=== PATIENT | male | born 1990 | race Caucasian/White ===

== ENCOUNTER 2016-11-29 01:27 | Emergency (ER) | payer SELFPAY ==
[~2016-11-29] VITALS: Ht 180.3 cm; Wt 118.2 kg
[2016-11-29 01:37] VITALS: BP 112/52; PULSE 109; RESP 18; TEMP 98.7; O2SAT 95
--- NOTE | 2016-11-29 02:08 | PD ---
HPI Chief Complaint: Psychiatric Symptoms Time Seen by Provider: 01:58 Travel History International Travel<30 days: No Contact w/Intl Traveler<30days: No Traveled to known affect area: No History of Present Illness HPI 26-year-old white male presents to emergency department on a voluntary basis requesting psychological evaluation. The patient states that is been feeling increasingly depressed. He has been from his baby's mother for some time now. She has found a new boyfriend had moved up to [place] with his daughter. 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 He drinks alcohol approximately 3 times a week and smokes marijuana. He is been having increasing intrusive thoughts of self-harm. He has no active plan at this time. He denies any toxic ingestions. No homicidal ideation. The patient states that he lives in [place]. [facility] Past Medical History Medical History: Denies Significant Hx Diabetes: No Diminished Hearing: No Tetanus Vaccination: > 5 Years Influenza Vaccination: No Past Surgical History Narrative Surgical Hand surgery Other Surgery: Yes (HAND SURGERY lt ) Social History Alcohol Use: Yes (8 beers tonight last at 0000) Tobacco Use: Yes (2 ppd) Substance Use: Yes Allergies-Medications (Allergen,Severity, Reaction): Coded Allergies: No Known Allergies (Verified , 12/29/15) Reported Meds & Prescriptions Reported Meds & Active Scripts Active No Active Prescriptions or Reported Medications Review of Systems Except as stated in HPI: all other systems reviewed are Neg Physical Exam Narrative GENERAL: Well-nourished, morbidly obese patient. SKIN: Warm and dry. HEAD: Normocephalic and atraumatic. EYES: No scleral icterus. No injection or drainage. ENT: No nasal drainage noted. Mucous membranes pink. Airway patent. NECK: Supple, trachea midline. Moves head freely without obvious discomfort. CARDIOVASCULAR: Regular rate and rhythm without murmurs, gallops, or rubs. RESPIRATORY: Breath sounds equal bilaterally. No accessory muscle use. Few expiratory wheezes GASTROINTESTINAL: Abdomen soft, non-tender, nondistended. EXTREMITIES: No cyanosis or edema. BACK: Nontender without obvious deformity. No CVA tenderness. NEURO: Patient is alert and oriented. no sensorimotor deficits. Nonfocal. Normal speech. PSYCH: No delusions. No auditory or visual hallucinations. Data Data Last Documented VS Vital Signs Date Time Temp Pulse Resp B/P (MAP) Pulse Ox O2 Delivery O2 Flow Rate FiO2 11/29/16 01:37 98.7 109 18 112/52 (72) 95 Orders Orders Complete Blood Count With Diff (11/29/16 01:58) Comprehensive Metabolic Panel (11/29/16 01:58) Psych Screen (11/29/16 01:58) Drug Screen, Random Urine (11/29/16 01:58) Alcohol (Ethanol) (11/29/16 01:58) Labs Laboratory Tests Test 11/29/16 02:08 11/29/16 02:14 White Blood Count 12.7 TH/MM3 Red Blood Count 4.29 MIL/MM3 Hemoglobin 13.4 GM/DL Hematocrit 40.1 % Mean Corpuscular Volume 93.4 FL Mean Corpuscular Hemoglobin 31.3 PG Mean Corpuscular Hemoglobin Concent 33.6 % Red Cell Distribution Width 13.1 % Platelet Count 235 TH/MM3 Mean Platelet Volume 8.6 FL Neutrophils (%) (Auto) 56.5 % Lymphocytes (%) (Auto) 34.6 % Monocytes (%) (Auto) 6.8 % Eosinophils (%) (Auto) 1.3 % Basophils (%) (Auto) 0.8 % Neutrophils # (Auto) 7.2 TH/MM3 Lymphocytes # (Auto) 4.4 TH/MM3 Monocytes # (Auto) 0.9 TH/MM3 Eosinophils # (Auto) 0.2 TH/MM3 Basophils # (Auto) 0.1 TH/MM3 CBC Comment DIFF FINAL Differential Comment Blood Urea Nitrogen 15 MG/DL Creatinine 0.91 MG/DL Random Glucose 120 MG/DL Total Protein 7.6 GM/DL Albumin 4.1 GM/DL Calcium Level 8.2 MG/DL Alkaline Phosphatase 71 U/L Aspartate Amino Transf (AST/SGOT) 27 U/L Alanine Aminotransferase (ALT/SGPT) 99 U/L Total Bilirubin 0.2 MG/DL Sodium Level 141 MEQ/L Potassium Level 4.0 MEQ/L Chloride Level 110 MEQ/L Carbon Dioxide Level 21.1 MEQ/L Anion Gap 10 MEQ/L Estimat Glomerular Filtration Rate 99 ML/MIN Ethyl Alcohol Level 222 MG/DL Urine Opiates Screen NEG Urine Barbiturates Screen NEG Urine Amphetamines Screen NEG Urine Benzodiazepines Screen NEG Urine Cocaine Screen NEG Urine Cannabinoids Screen POS MDM Medical Decision Making Medical Screen Exam Complete: Yes Emergency Medical Condition: Yes Medical Record Reviewed: Yes Interpretation(s) Laboratory Tests Test 11/29/16 02:08 11/29/16 02:14 White Blood Count 12.7 TH/MM3 Red Blood Count 4.29 MIL/MM3 Hemoglobin 13.4 GM/DL Hematocrit 40.1 % Mean Corpuscular Volume 93.4 FL Mean Corpuscular Hemoglobin 31.3 PG Mean Corpuscular Hemoglobin Concent 33.6 % Red Cell Distribution Width 13.1 % Platelet Count 235 TH/MM3 Mean Platelet Volume 8.6 FL Neutrophils (%) (Auto) 56.5 % Lymphocytes (%) (Auto) 34.6 % Monocytes (%) (Auto) 6.8 % Eosinophils (%) (Auto) 1.3 % Basophils (%) (Auto) 0.8 % Neutrophils # (Auto) 7.2 TH/MM3 Lymphocytes # (Auto) 4.4 TH/MM3 Monocytes # (Auto) 0.9 TH/MM3 Eosinophils # (Auto) 0.2 TH/MM3 Basophils # (Auto) 0.1 TH/MM3 CBC Comment DIFF FINAL Differential Comment Blood Urea Nitrogen 15 MG/DL Creatinine 0.91 MG/DL Random Glucose 120 MG/DL Total Protein 7.6 GM/DL Albumin 4.1 GM/DL Calcium Level 8.2 MG/DL Alkaline Phosphatase 71 U/L Aspartate Amino Transf (AST/SGOT) 27 U/L Alanine Aminotransferase (ALT/SGPT) 99 U/L Total Bilirubin 0.2 MG/DL Sodium Level 141 MEQ/L Potassium Level 4.0 MEQ/L Chloride Level 110 MEQ/L Carbon Dioxide Level 21.1 MEQ/L Anion Gap 10 MEQ/L Estimat Glomerular Filtration Rate 99 ML/MIN Ethyl Alcohol Level 222 MG/DL Urine Opiates Screen NEG Urine Barbiturates Screen NEG Urine Amphetamines Screen NEG Urine Benzodiazepines Screen NEG Urine Cocaine Screen NEG Urine Cannabinoids Screen POS Differential Diagnosis MDM: High Differential diagnoses: Schizophrenia, schizoaffective disorder, bipolar, anxiety, depression, adjustment reaction, mood disorder NOS, ODD, depressive disorder NOS, dementia, dementia with agitation, psychosis NOS, substance induced mood disorder, infection,electrolyte abnormality, malingering. Narrative Course Mental health screening discussed with the patient. Psychiatric screen ordered. The patient is been medically cleared. This is medical clearance for psychiatric admission Diagnosis Primary Impression: Medical clearance for psychiatric admission Scripts No Active Prescriptions or Reported Meds Condition: Jasen Dubose Nov 29, 2016 02:08
[2016-11-29 02:20] LABS: AUTOMATED NEUTROPHIL # 7.2 TH/MM3 (1.8-7.7); BASOPHIL # 0.1 TH/MM3 (0-0.2); BASOPHIL % 0.8 % (0.0-2.0); EOSINOPHIL # 0.2 TH/MM3 (0-0.4); EOSINOPHIL % 1.3 % (0.0-4.0); HEMATOCRIT 40.1 % (39.0-51.0); HEMO FLAGS DIFF FINAL; LYMPH % 34.6 % (9.0-44.0); LYMPHOCYTE # 4.4 TH/MM3 (1.0-4.8); MEAN CELL VOLUME 93.4 FL (80.0-100.0); MEAN CORPUSCULAR HEMOGLOBIN 31.3 PG (27.0-34.0); MEAN CORPUSCULAR HGB CONC 33.6 % (32.0-36.0); MONO % 6.8 % (0.0-8.0); NEUT % 56.5 % (16.0-70.0); PLATELET COUNT 235 TH/MM3 (150-450); RED BLOOD COUNT 4.29 MIL/MM3 (4.50-5.90); RED CELL DISTRIBUTION WIDTH 13.1 % (11.6-17.2); WHITE BLOOD COUNT 12.7 TH/MM3 (4.0-11.0)
[2016-11-29 02:45] LABS: ALT (GPT) 99 U/L (12-78); ANION GAP 10 MEQ/L (5-15); AST (GOT) 27 U/L (15-37); BICARBONATE 21.1 MEQ/L (21.0-32.0); BLOOD UREA NITROGEN 15 MG/DL (7-18); CHLORIDE 110 MEQ/L (98-107); GLOMERULAR FILTRATION RATE 99 ML/MIN (>89); SODIUM (NA) 141 MEQ/L (136-145)
[2016-11-29 02:48] LABS: ALKALINE PHOSPHATASE 71 U/L (45-117); TOTAL BILIRUBIN ADULT 0.2 MG/DL (0.2-1.0)
[2016-11-29 03:31] LABS: ALCOHOL 222 MG/DL (0-5)
[2016-11-29 06:14] VITALS: BP 143/64; PULSE 92; RESP 18; O2SAT 95
--- NOTE | 2016-11-29 13:42 | PD ---
History of Present Illness Chief Complaint: Psychiatric Symptoms Time Seen by Provider: 13:20 Travel History International Travel<30 Days: No Contact w/Intl Traveler<30days: No Known affected area: No History of Present Illness: History of Present Illness HPI 26-year-old white male with history of ADHD, adjustment disorder who presents to emergency department on a Vences act initiated by [employer]UKO alleging that he verbalized he was depressed over not being able to see his daughter and that he felt like blowing his brains out and that he thinks about doing so every day. He drinks alcohol approximately 3 times a week and smokes marijuana. Patient was monitored and allowed to sober up clinically. BAL on arrival 222. Positive for cannabinoids. He was last evaluated by psychiatry in 2016 under a Vences act. He was treated at [facility] as a child for ADHD. Patient is now clinically sober. He is alert, oriented, calm, cooperative with clear speech. Ambulates well. No tremors. States " I was pretty intoxicated yesterday and when I drink I feel depressed. Normally I am fine. He has no recollection of saying he was going to harm himself. He is future oriented and has adequate protective factors. States " I am not thinking of arming myself if I do that I will never see my daughter, Tammy". He also reports that he is trying to obtain contracts paralegal in order to have visitation with his daughter on a consistent basis. He admits to feeling sad when he thinks of his daughter but he does nto present any objective clinical signs of a depressive disorder. PFSH Past Medical History Medical History: Denies Significant Hx Diabetes: No Diminished Hearing: No Tetanus Vaccination: > 5 Years Influenza Vaccination: No Past Surgical History Other Surgery: Yes (HAND SURGERY lt ) Psychiatric History Psychiatric History Hx Psychiatric Treatment: Denies any current tx received psychiatric tretament at age 13 yeras for ADHD. No hx of suicide attempts History of Inpatient Treatment: Yes Guns or firearms in home: No Social History x 3 years. daughter moved to [place] last year. Saw his daughter at [facility]. Lives with grandfather and aunt. Works at a restaurant. Hx of DUI at age 16 years. Hx Alcohol Use: Yes (8 beers tonight last at 0000) Hx Tobacco Use: Yes (2 ppd) Hx Substance Use: Yes Substance Use Type: Alcohol, Marijuana, Cocaine Hx of Substance Use Treatment: No Family Psychiatric History None reported. Allergies-Medications (Allergen,Severity, Reaction): Coded Allergies: No Known Allergies (Verified , 12/29/15) Reported Meds & Prescriptions Reported Meds & Active Scripts Active No Active Prescriptions or Reported Medications Review of Systems Except as stated in HPI: all other systems reviewed are Neg Exam Alert: Yes [place]: Person (ox4) Mood: Calm Affect: Appropriate Speech: Clear, Logical Eye Contact: Normal Memory Intact: Comment (Not impaired) Hallucinations: Other (Negative) Delusions: No Suicidal: Ideation (denies any) Homicidal: Ideation (denies any) Insight/Judgement Fair,. Not impaired. MDM Medical Decision Making Medical Record Reviewed: Yes Assessment/Plan 26-year-old white male with history of ADHD, adjustment disorder who presents to emergency department on a Vences act initiated by YUKO alleging that he verbalized he was depressed over not being able to see his daughter and that he felt like blowing his brains out and that he thinks about doing so every day. He drinks alcohol approximately 3 times a week and smokes marijuana. Patient was monitored and allowed to sober up clinically. Once sober he deneis any suicidal or homicidal ideation, intent or plan. States " I was pretty intoxicated and when I drink I feel depressed. normally I am fine. He has no recollection of saying he was going to harm himself. He is future oriented and adequate protective factors. states " I am not thinking of arming myself if I do that I will never see my daughter, Tammy " Does not meet Vences at criteria. and it will be lifted. Has been counseled on alcohol abuse and abstinence. Clear psychiatrically for discharge from ED Orders Orders Complete Blood Count With Diff (11/29/16 01:58) Comprehensive Metabolic Panel (11/29/16 01:58) Psych Screen (11/29/16 01:58) Drug Screen, Random Urine (11/29/16 01:58) Alcohol (Ethanol) (11/29/16 01:58) Diet Regular Basic (11/29/16 Breakfast) Results Vital Signs Date Time Temp Pulse Resp B/P (MAP) Pulse Ox O2 Delivery O2 Flow Rate FiO2 11/29/16 06:14 92 18 143/64 (90) 95 Room Air 11/29/16 01:37 98.7 109 18 112/52 (72) 95 Laboratory Tests Test 11/29/16 02:08 11/29/16 02:14 White Blood Count 12.7 Red Blood Count 4.29 Hemoglobin 13.4 Hematocrit 40.1 Mean Corpuscular Volume 93.4 Mean Corpuscular Hemoglobin 31.3 Mean Corpuscular Hemoglobin Concent 33.6 Red Cell Distribution Width 13.1 Platelet Count 235 Mean Platelet Volume 8.6 Neutrophils (%) (Auto) 56.5 Lymphocytes (%) (Auto) 34.6 Monocytes (%) (Auto) 6.8 Eosinophils (%) (Auto) 1.3 Basophils (%) (Auto) 0.8 Neutrophils # (Auto) 7.2 Lymphocytes # (Auto) 4.4 Monocytes # (Auto) 0.9 Eosinophils # (Auto) 0.2 Basophils # (Auto) 0.1 CBC Comment DIFF FINAL Differential Comment Blood Urea Nitrogen 15 Creatinine 0.91 Random Glucose 120 Total Protein 7.6 Albumin 4.1 Calcium Level 8.2 Alkaline Phosphatase 71 Aspartate Amino Transf (AST/SGOT) 27 Alanine Aminotransferase (ALT/SGPT) 99 Total Bilirubin 0.2 Sodium Level 141 Potassium Level 4.0 Chloride Level 110 Carbon Dioxide Level 21.1 Anion Gap 10 Estimat Glomerular Filtration Rate 99 Ethyl Alcohol Level 222 Urine Opiates Screen NEG Urine Barbiturates Screen NEG Urine Amphetamines Screen NEG Urine Benzodiazepines Screen NEG Urine Cocaine Screen NEG Urine Cannabinoids Screen POS Diagnosis Primary Impression: Alcohol abuse with intoxication Additional Impression: Substance induced mood disorder Psychiatrically Cleared: Yes Med/ Other Pt Specific Info: No Meds Exist/No RX given Prescriptions No Active Prescriptions or Reported Meds Disposition: DISCHARGE HOME Condition: Stable Problem Qualifiers Shelbi Mason Nov 29, 2016 13:42
[2016-11-29 14:33] VITALS: BP 125/85
== END 2016-11-29 14:35 | disposition home or self-care (01) ==
LOC: NEPD 01:27
DX: F10.129 Alcohol abuse with intoxication, unspecified (principal); F19.94 Other psychoactive substance use, unspecified with psychoactive substance-induced mood disorder; F90.9 Attention-deficit hyperactivity disorder, unspecified type; F43.20 Adjustment disorder, unspecified; E66.01 Morbid (severe) obesity due to excess calories; F17.200 Nicotine dependence, unspecified, uncomplicated
CPT/HCPCS: 80053; 80307; 85025; 99283

== ENCOUNTER 2017-07-10 17:22 | Emergency (ER) | payer SELFPAY ==
[~2017-07-10] VITALS: Ht 180.3 cm; Wt 128.0 kg
[2017-07-10 17:29] VITALS: BP 144/78; PULSE 85; RESP 18; TEMP 97.7; O2SAT 97
[2017-07-10] MEDS ORDERED: ROBA500T PO (17:56)
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
== END 2017-07-10 18:06 | disposition home or self-care (01) ==
LOC: PHEFT 17:22
DX: M62.838 Other muscle spasm (principal); S80.12XA Contusion of left lower leg, initial encounter; S00.93XA Contusion of unspecified part of head, initial encounter; M25.511 Pain in right shoulder; V43.62XA Car passenger injured in collision with other type car in traffic accident, initial encounter
CPT/HCPCS: 99283